=== PATIENT | female | born 1990 | race Caucasian/White ===

== ENCOUNTER 2017-06-30 19:40 | Emergency (ER) | payer BC, OTHER | END 2017-06-30 22:40 | disposition home or self-care (01) | LOC: ERS 19:40 → EEVIPCON 19:40 → ERS 22:40 | DX: S50.01XA Contusion of right elbow, initial encounter (principal); S80.01XA Contusion of right knee, initial encounter; S80.12XA Contusion of left lower leg, initial encounter; S80.11XA Contusion of right lower leg, initial encounter; F32.9 Major depressive disorder, single episode, unspecified; Y04.0XXA Assault by unarmed brawl or fight, initial encounter | CPT/HCPCS: 99284 ==